=== PATIENT | female | born 1995 | race African-American/Black ===

== ENCOUNTER 2017-01-04 15:25 | Emergency (ER) | payer OTHER, MEDICAID ==
[2017-01-04 15:44] VITALS: BP 172/88; BMI 56.5
[2017-01-04] MEDS ORDERED: SOLU-Medrol 125 MG VIAL IM ONE (16:24)
[2017-01-04] MEDS ORDERED: DUONEB 0.5 MG/3 MG NEB ONE (16:24)
[2017-01-04] MEDS ORDERED: ZOFRAN TAB 4 MG PO STA (16:28)
[2017-01-04] MEDS ORDERED: ZOFRAN TAB 4 MG ONE (16:31)
[2017-01-04] MEDS ORDERED: SOLU-Medrol 125 MG VIAL ONE (16:31)
--- NOTE | 2017-01-04 16:32 | DR.URIAD ---
HPI - Time Seen Time seen: 16:27 - PCP Primary Care Physician: NFD - Complaint Chief Complaint Doctors Comments: Patient is complaining of cough, nasal congestion, sore throat, fever, chills, vomiting and wheezing. states she went to the hospital at [facility] yesterday and they told her she had bronchitits in both lungs and gave her an inhaler and a white pill that she nor her mother know the name of the medicines. states she is on her perod now and has not been using contraceptives. She denies dysuria, hematuria or diarrhea. Chief Complaint:: PT C/O CCC, PT DX WITH BRONCHITIS ON 01/03/17 AND SHE WAS GIVEN AN INAILER THAT DOES NOT WORK,,,, MOM C/O SHE HAS BEEN COUGHING AND VOMITING ,,, AND HER FEVER WAS ,,,BR Self Treatment fo Chief Complaint: INHAILER - Reviewed Nurses Notes Reviewed: Yes - Source History Provided: Patient - Mode of Arrival Mode of Arrival: Wheelchair - Timing Onset of Chief Complaint: 01/01/17 - Context Recent Treated Infections: URI History of Respiratory: Bronchitis - Quality Quality of Cough: Nonproductive Rhinorrhea: Clear Shortness of Breath: Mild - Associated Signs and Symptoms Other Signs and Symptoms: Chills, Fever, Sore Throat, Wheeze PMH - PMH Past Medical History: No Past Surgical History: Yes Surgical History: - Family History History of Family Medical Conditions: No - Social History Does patient currently use any type of tobacco product: No Have you used tobacco products in the last 12 months: No Type of Tobacco Use: None Does any household member use tobacco: No Alcohol Use: None Do you use any recreational Drugs:: No Lives With: Family - infectious screening In the last 2 months have you had wt loss of >10#?: NO Have you had fever, night sweats or hemotysis?: No Have you traveled outside the country in the last 6 months?: No Isolation: Standard ROS - Review of Systems Constitutional: Chills, Fever. negative: No Symptoms Reported, See HPI, Diaphoresis, Malaise, Weakness, Irritable, Fatigue, Loss of Appetite, Other Eyes: No Symptoms Reported ENTM: No Symptoms Reported, Nose Discharge, Nose Congestion, Throat Pain. negative: See HPI, Ear Pain, Ear Discharge, Pulling on Ears, Hearing Loss, Nose Pain, Epistaxis, Mouth Pain, Mouth Swelling, Loose Teeth, Drooling, Throat Swelling, Ear Foreign Body Respiratoy: No Symptoms Reported, Non-Productive Cough, Short of Breath, Wheezing. negative: See HPI, Productive Cough, Moist Cough, Dry Cough, Hacking Cough, Barking Cough, Brassy Cough, Orthopnea, Stridor, Hemoptysis, Other Cardiovascular: No Symptoms Reported Gastrointestinal/Abdominal: No Symptoms Reported, Nausea, Vomiting. negative: See HPI, Abdominal Pain, Constipation, Diarrhea, Food Intolerance, Other Genitourinary: No Symptoms Reported. negative: See HPI, Discharge, Dysuria, Frequency, Hematuria, Pain, Bleeding, Other Neurological: No Symptoms Reported. negative: See HPI, Anxiety, Depressed, Emotional Problems, Headache, Numbness, Paresthesia, Pre-existing Deficit, Seizure, Tingling, Tremors, Weakness, Dizziness, Problems Walking, Speech Problem, Other Musculoskeletal: No Symptoms Reported Integumentary: No Symptoms Reported. negative: See HPI, Change in Color, Change in Hair/Nails, Dryness, Lesions, Lumps, Rash, Itching, Wound, Bruises, Juandice, Other Hematologic/Lymphatic: No Symptoms Reported Endocrine: No Symptoms Reported Psychiatric: No Symptoms Reported PE - Vital Signs Vitals: Temperature 99.2 F Pulse Rate 114 Respiratory Rate 18 Blood Pressure 172/88 O2 Sat by Pulse Oximetry 98 - General Limitations: No Limitations General Appearance: Alert, In No Apparent Distress - Head Head Exam: Normal Inspection, Atraumatic, Normocephalic - Eyes Eye exam: Normal Appearance, PERRL, EOMI. negative: Scleral Icterus, Conjunctival Injection, Nystagmus, Miosis, Mydrasis, Periorbital Swelling, Periorbital Tenderness, Other - ENT ENT Exam: Normal Exam, Normal Oropharynx, Normal External Ear Exam, Mucous Membranes Moist, TM's Normal Bilaterally External Ear Exam: Normal External Inspection TM/Canal Exam: Bilateral Normal Nasal Speculum Exam: Bilateral Normal Mouth Exam: Normal Inspection Throat Exam: Normal Inspection. negative: Tonsillar Erythema, Tonsillomegaly, Tonsillar Exudate, R Peritonsillar Mass, L Peritonsillar Mass, Muffled Voice, Other - Neck Neck Exam: Normal Inspection, Full ROM, Trachea Midline. negative: Tenderness, Meningismus, Lymphadenopathy, Thyromegaly, Other - Chest Chest Inspection: Normal Inspection, Symmetric Chest Wall Rise. negative: Tenderness, Rash, Abscess, Other - Respiratory Respiratory Exam: Normal Lung Sounds Bilat Respiratory Exam: Bilateral Clear to Auscultation - Cardiovascular Cardiovascular Exam: Regular Rate, Normal Rhythm, Normal Heart Sounds. negative : Bradycardia, Tachycardia, Irregular Rhythm, Systolic Murmur, Diastolic Murmur , Rubs, Gallop, Clicks, JVD, +S1, +S2, +S3, +S4, Other - Abdominal Exam Abdominal Exam: Normal Inspection, Normal Bowel Sounds, Soft. negative: Distention, Tenderness, Guarding, Rebound, Rigidity, Dimnished Bowel Sounds, Hyperactive Bowel Sounds, Hypoactive Bowel Sounds, Organomegaly, Trauma, Incision, Ascites, Mass, Bruit, Pulsatile Mass, Hernia, Other Abdominal Tenderness: Epigastrium, Mild. negative: RUQ, RLQ, LUQ, LLQ, Suprapubic, Diffuse, Moderate, Severe, Other - Extremeties Extremities Exam: Normal Inspection, Full ROM, Normal Capillary Refill. negative: Tenderness, Edema, Joint Swelling, Calf Tenderness, Other - Back Back Exam: Normal Inspection, Full ROM. negative: Tenderness, (R) CVA Tenderness, (L) CVA Tenderness, Muscle Spasm, Paraspinal Tenderness, Vertebral Tenderness, Rashes, (R) Sciatic Notch Tenderness, (L) Sciatic Notch Tendern, (R ) Straight Leg Raise, (L) Straight Leg Raise, Other - Neurologic Neurological Exam: Alert, Oriented X3, CN II-XII Intact, Normal Gait, Reflexes Normal - Psychiatric Psychiatric Exam: Normal Affect, Normal Mood. negative: Depressed, Agitated, Anxious, Flat Affect, Manic, Homicidal Ideation, Suicidal Ideation, Other - Skin Skin Exam: Warm, Dry, Intact, Normal Color ROR - Labs Reviewed Laboratory Results Reviewed?: Yes (all labs and x-ray results reviewed and discussed with patient) Result Diagrams: 01/04/17 16:35 01/04/17 16:35 Laboratory: WBC 6.1 X10^3/uL (3.6-10.0) 01/04/17 16:35 RBC 4.42 X10^6/uL (3.5-5.4) 01/04/17 16:35 Hgb 10.8 g/dL (12.0-16.0) L 01/04/17 16:35 Hct 32.6 % (36.0-47.0) L 01/04/17 16:35 MCV 73.7 fL (80.0-100.0) L 01/04/17 16:35 MCH 24.5 pg (27.0-34.0) L 01/04/17 16:35 MCHC 33.3 g/dL (33.0-35.0) 01/04/17 16:35 RDW 16.3 % (11.6-16.5) 01/04/17 16:35 Plt Count 305 X10^3/uL (150.0-450.0) 01/04/17 16:35 Plt Count Comment Adequate (ADEQUATE) 01/04/17 16:35 MPV 8.2 fL (7.4-11.0) 01/04/17 16:35 Neut % 68.5 % (42.0-75.0) 01/04/17 16:35 Lymph % 15.6 % (21.0-51.0) L 01/04/17 16:35 [place] % 15.4 % (0.0-13.0) H 01/04/17 16:35 Eos % 0.2 % (0.9-2.9) L 01/04/17 16:35 Baso % 0.3 % (0.2-1.0) 01/04/17 16:35 Neut # 4.2 x10^3/uL (2.2-4.8) 01/04/17 16:35 Lymph # 1.0 X10^3/uL (1.3-2.9) L 01/04/17 16:35 [place] # 0.9 x10^3/uL (0.3-0.8) H 01/04/17 16:35 Eos # 0.0 x10^3/uL (0.0-0.2) 01/04/17 16:35 Baso # 0.0 X10^3/uL (0.0-0.1) 01/04/17 16:35 Absolute Nucleated RBC 0.0 /100WBC 01/04/17 16:35 Plt Morphology Comment Normal (NORMAL) 01/04/17 16:35 RBC Morphology Abnormal (NORMAL) A 01/04/17 16:35 Hypochromasia Slight A 01/04/17 16:35 Macrocytosis Slight A 01/04/17 16:35 Sodium 139 mmol/L (136-145) 01/04/17 16:35 Corrected Sodium TNP 01/04/17 16:35 Potassium 3.5 mmol/L (3.5-5.1) 01/04/17 16:35 Chloride 102 mmol/L (98-107) 01/04/17 16:35 Carbon Dioxide 26.2 mmol/L (21-32) 01/04/17 16:35 BUN 5 mg/dL (7-18) L 01/04/17 16:35 Creatinine 0.88 mg/dL (0.55-1.02) 01/04/17 16:35 Est GFR (MDRD) Af Amer > 60 (>60) 01/04/17 16:35 Est GFR (MDRD) Non-Af > 60 (>60) 01/04/17 16:35 Glucose 92 mg/dL (65-99) 01/04/17 16:35 Calcium 8.9 mg/dL (8.5-10.1) 01/04/17 16:35 HCG, Qual Negative <10 mIU/mL 01/04/17 16:35 H. pylori IgG Antibody Negative (NEGATIVE) 01/04/17 16:35 - XRAY XRAY Interpreted by: Radiologist (CXR: No acute process identified.) - Diagnosis Discharge Problem: Bronchitis with bronchospasm Sinusitis, acute frontal Qualifiers: Recurrence: not specified as recurrent Qualified Code(s): J01.10 - Acute frontal sinusitis, unspecified - Discharge Plan Disposition: HOME, SELF-CARE Condition: Stable Prescriptions: Ciprofloxacin HCl [CIPRO 500 MG TAB *] 500 mg PO Q12H #20 tab Codeine Phosphate/Guaifenesin [Cheratussin AC 100-10 mg/5Ml] 10 ml PO Q6H PRN # 120 ml PRN Reason: Cough/Congestion Montelukast Sodium [Singulair Tab 10 mg] 10 mg PO HS #30 tab Oseltamivir Phosphate [Tamiflu] 75 mg PO BID #10 cap - Follow ups/Referrals Follow ups/Referrals: NFD,None [Primary Care Provider] - 3 days STEPHEN DEVLIN [STAFF PHYSICIAN] - 3 days - Instructions Instructions: Acute Bronchitis, Sinusitis, Adult, [id number], Bronchospasm, Adult, Influenza, Adult, [id number]
[2017-01-04] MEDS ORDERED: DUONEB 0.5 MG/3 MG ONE (16:34)
--- NOTE | 2017-01-04 16:46 | RAD ---
Examination: AP chest History: Cough and vomiting, bronchitis Comparison reference: None Findings: Frontal view of the chest demonstrates normal heart size. There is no obvious pulmonary or pleural lesion noted although detail is limited by nonstandard technical factors and patient size. Th ere is no gross pneumothorax or large pleural effusion. Impression: No acute process identified; see above. Standard PA and lateral views suggested when able . Reported By:
[2017-01-04 16:48] LABS: BASOPHILS % (AUTO) 0.3 % (0.2-1.0); EOSINOPHILS % (AUTO) 0.2 % (0.9-2.9); HEMATOCRIT 32.6 % (36.0-47.0); HEMOGLOBIN 10.8 g/dL (12.0-16.0); LYMPHOCYTES % (AUTO) 15.6 % (21.0-51.0); MEAN CORPUSCULAR HEMOGLOBIN 24.5 pg (27.0-34.0); MEAN CORPUSCULAR HGB CONC 33.3 g/dL (33.0-35.0); MEAN CORPUSCULAR VOLUME 73.7 fL (80.0-100.0); MEAN PLATELET VOLUME 8.2 fL (7.4-11.0); MONOCYTES # (AUTO) 0.9 x10^3/uL (0.3-0.8); MONOCYTES % (AUTO) 15.4 % (0.0-13.0); NEUTROPHILS # (AUTO) 4.2 x10^3/uL (2.2-4.8); NEUTROPHILS % (AUTO) 68.5 % (42.0-75.0); PLATELET COUNT 305 X10^3/uL (150.0-450.0); RED BLOOD COUNT 4.42 X10^6/uL (3.5-5.4); RED CELL DISTRIBUTION WIDTH 16.3 % (11.6-16.5); WHITE BLOOD COUNT 6.1 X10^3/uL (3.6-10.0)
[2017-01-04 16:52] LABS: BLOOD UREA NITROGEN 5 mg/dL (7-18); CALCIUM 8.9 mg/dL (8.5-10.1); CARBON DIOXIDE 26.2 mmol/L (21-32); CHLORIDE 102 mmol/L (98-107); CREATININE 0.88 mg/dL (0.55-1.02); SODIUM 139 mmol/L (136-145); eGFR BLACK RACES > 60 (>60); eGFR NON BLACK RACES > 60 (>60)
[2017-01-04 16:55] LABS: HYPOCHROMASIA SLIGHT; PLATELET MORPHOLOGY COMMENT NORMAL (NORMAL)
[2017-01-04 17:14] LABS: SERUM PREGNANCY TEST, QUAL NEGATIVE <10 mIU/mL
== END 2017-01-04 17:34 | disposition home or self-care (01) ==
LOC: ER 15:55
DX: J98.01 Acute bronchospasm (principal); J01.80 Other acute sinusitis
CPT/HCPCS: 36415; 71010; 80048; 84703; 85025; 86677; 96372; 99282; 99283; S0181; J2930; J7620